=== PATIENT | female | born 1960 | race Caucasian/White ===

== ENCOUNTER 2019-05-18 04:47 | Emergency (ER) | payer OTHER ==
[~2019-05-18] VITALS: Ht 167.6 cm; Wt 45.4 kg
[2019-05-18 04:49] VITALS: Ht 167.6 cm; Wt 45.4 kg
[2019-05-18 06:17] LABS: BASOPHIL % 0.6 % (0-2)
[2019-05-18 06:18] LABS: PLATELET COUNT 453 x10^3mcL (130-400); RED CELL DISTRIBUTION WIDTH 15.1 % (11.5-14.5)
[2019-05-18 06:25] VITALS: BP 162/88
[2019-05-18 06:34] LABS: CARBON DIOXIDE 24.2 mmol/L (21-32); CHLORIDE SERUM 102 mmol/L (98-107); CREATININE SERUM 0.7 mg/dL (0.6-1.0); GFR1 > 60 mL/min; GLUCOSE SERUM 297 mg/dL (74-106); POTASSIUM SERUM 4.1 mmol/L (3.5-5.1); SODIUM SERUM 137 mmol/L (136-145)
[2019-05-18 06:38] LABS: ALKALINE PHOSPHATASE 283 U/L (46-116); ALT/SGPT 19 U/L (14-59); AST/SGOT 14 U/L (15-37); BILIRUBIN TOTAL 0.2 mg/dL (0.20-1.00)
[2019-05-18 06:50] LABS: ALBUMIN 3.3 g/dL (3.4-5.0)
== END 2019-05-18 06:25 | disposition left against medical advice (07) ==
LOC: ED 04:47
PROVIDERS: Emergency Medicine
DX: E11.65 Type 2 diabetes mellitus with hyperglycemia (principal)
CPT/HCPCS: 36415